=== PATIENT | female | born 1990 | race African-American/Black ===

== ENCOUNTER 2017-04-13 09:42 | Emergency (ER) | payer MEDICAID ==
[~2017-04-13] VITALS: Ht 152.4 cm; Wt 54.4 kg
[2017-04-13 09:50] VITALS: BP 111/67
== END 2017-04-13 10:34 | disposition left against medical advice (07) ==
LOC: ER 09:42
DX: S31.119D Laceration without foreign body of abdominal wall, unspecified quadrant without penetration into peritoneal cavity, subsequent encounter (principal)